=== PATIENT | male | born 1955 | race Caucasian/White ===

== ENCOUNTER → 2019-10-02 | Outpatient (CLI) | payer OTHER | END | disposition home or self-care (01) | LOC: LAB EV 14:25 → LAB SHORT 14:25 | DX: N39.0 Urinary tract infection, site not specified (principal) | CPT/HCPCS: 87086 ==

== ENCOUNTER 2021-01-19 12:33 | Day surgery (SDC) | payer OTHER ==
[~2021-01-19] VITALS: Ht 180.3 cm; Wt 106.3 kg
[~2021-01-19 12:33] MED LIST: ATOR40TA PO; GLUCOPHAGE1000 M3 PO; Prinivil10 MG PO
== END 2021-01-19 15:23 | disposition home or self-care (01) ==
LOC: ORSCSDS 12:33
PROVIDERS: Internal Medicine Gastroenterology
PROC: 0DBM8ZX Excision of Descending Colon, Via Natural or Artificial Opening Endoscopic, Diagnostic (ICD-10-PCS; principal; 2021-01-19 15:15)
PROC: 0D5H8ZZ Destruction of Cecum, Via Natural or Artificial Opening Endoscopic (ICD-10-PCS; principal; 2021-01-19 15:15)
PROC: 0DBP8ZX Excision of Rectum, Via Natural or Artificial Opening Endoscopic, Diagnostic (ICD-10-PCS; principal; 2021-01-19 15:15)
PROC: 0DBN8ZX Excision of Sigmoid Colon, Via Natural or Artificial Opening Endoscopic, Diagnostic (ICD-10-PCS; principal; 2021-01-19 15:15)
PROC: 0DBL8ZX Excision of Transverse Colon, Via Natural or Artificial Opening Endoscopic, Diagnostic (ICD-10-PCS; principal; 2021-01-19 15:15)
DX: Z12.11 Encounter for screening for malignant neoplasm of colon (principal); K55.20 Angiodysplasia of colon without hemorrhage; D12.0 Benign neoplasm of cecum; D12.3 Benign neoplasm of transverse colon; D12.4 Benign neoplasm of descending colon; K62.1 Rectal polyp; K64.8 Other hemorrhoids; Z86.010 Personal history of colon polyps; I10 Essential (primary) hypertension; F17.210 Nicotine dependence, cigarettes, uncomplicated; E11.9 Type 2 diabetes mellitus without complications; Z79.84 Long term (current) use of oral hypoglycemic drugs; Z79.899 Other long term (current) drug therapy
CPT/HCPCS: 82947; 88305; J2704; J7040; J7120

== ENCOUNTER → 2022-03-19 | Outpatient (CLI) | payer OTHER ==
[2022-03-19 14:43] LABS: BASOPHILS ABSOLUTE AUTO 0.03 K/mm3 (0.00-0.23); BASOPHILS PERCENT AUTO 0 % (0-2); EOSINOPHILS ABSOLUTE AUTO 0.05 K/mm3 (0.00-0.68); EOSINOPHILS PERCENT AUTO 1 % (0-6); Hematocrit 44.3 % (37.0-53.0); Hemoglobin 15.8 g/dL (13.5-17.5); IMMATURE GRAN ABSOLUTE AUTO 0.02 K/mm3 (0.00-0.10); IMMATURE GRAN PERCENT AUTO 0 % (0-1); LYMPHOCYTES ABSOLUTE AUTO 2.15 K/mm3 (0.84-5.20); LYMPHOCYTES PERCENT AUTO 25 % (21-46); MONOCYTES ABSOLUTE AUTO 0.43 K/mm3 (0.16-1.47); MONOCYTES PERCENT AUTO 5 % (4-13); Mean Corpuscular HGB 31.2 pg (26.0-34.0); Mean Corpuscular HGB Conc 35.7 g/dL (31.5-36.5); Mean Corpuscular Volume 88 fL (80-100); Mean Platelet Volume 10.7 fL (9.1-12.4); NEUTROPHILS ABSOLUTE AUTO 5.83 K/mm3 (1.96-9.15); NEUTROPHILS PERCENT AUTO 68 % (41-73); Platelet Count 250 K/mm3 (150-400); RDW Coefficient Variation 12.4 % (11.7-14.2); RDW Standard Deviation 39.6 fL (35.1-46.3); Red Blood Cell Count 5.06 M/mm3 (4.30-5.90); White Blood Cell Count 8.51 K/mm3 (4.00-11.30)
[2022-03-19 15:04] LABS: Albumin, Blood 3.8 g/dL (3.4-5.0); Albumin/Globulin Ratio 0.9 (0.8-1.8); Bilirubin, Total 0.3 mg/dL (0.1-1.0); Bun/Creatinine Ratio 16.5 (12.0-20.0); Calcium, Blood 9.5 mg/dL (8.5-10.1); Creatinine, Blood 1.27 mg/dL (0.60-1.20); Globulin, Blood 4.1 g/dL (2.2-4.0); Potassium, Blood 4.5 mmol/L (3.5-5.5); Thyroid Stimulating Hormone 1.711 uIU/mL (0.360-4.800); Total Protein, Blood 7.9 g/dL (6.4-8.2)
== END ==
LOC: LAB SHORT 14:35
PROVIDERS: Physician Assistant
DX: E86.0 Dehydration (principal); R53.83 Other fatigue
CPT/HCPCS: 80053; 83690; 84443; 85025

== ENCOUNTER 2022-03-31 00:59 | Day surgery (SDC) | payer MEDICARE, OTHER | END 2022-03-31 23:08 | disposition home or self-care (01) | LOC: WOUND 00:59 | DX: E11.621 Type 2 diabetes mellitus with foot ulcer (principal); L97.512 Non-pressure chronic ulcer of other part of right foot with fat layer exposed; D18.01 Hemangioma of skin and subcutaneous tissue; I10 Essential (primary) hypertension; D48.5 Neoplasm of uncertain behavior of skin; Z88.2 Allergy status to sulfonamides | CPT/HCPCS: 11106; 88305; A9270; G0463 ==

== ENCOUNTER 2022-04-07 02:21 | Day surgery (SDC) | payer MEDICARE, OTHER | END 2022-04-07 23:22 | disposition home or self-care (01) | LOC: WOUND 02:21 | DX: E11.621 Type 2 diabetes mellitus with foot ulcer (principal); L97.512 Non-pressure chronic ulcer of other part of right foot with fat layer exposed; I10 Essential (primary) hypertension; D48.5 Neoplasm of uncertain behavior of skin | CPT/HCPCS: A9270; G0463 ==

== ENCOUNTER 2022-04-14 01:50 | Day surgery (SDC) | payer MEDICARE, OTHER | END 2022-04-14 23:34 | disposition home or self-care (01) | LOC: WOUND 01:50 | DX: E11.621 Type 2 diabetes mellitus with foot ulcer (principal); L97.512 Non-pressure chronic ulcer of other part of right foot with fat layer exposed; I10 Essential (primary) hypertension; D48.5 Neoplasm of uncertain behavior of skin | CPT/HCPCS: G0463 ==

== ENCOUNTER 2023-05-16 17:22 | Emergency (ER) | payer OTHER, MEDICARE ==
[~2023-05-16] VITALS: Ht 182.9 cm; Wt 102.1 kg
[2023-05-16 17:46] LABS: BASOPHILS ABSOLUTE AUTO 0.07 K/mm3 (0.00-0.23); BASOPHILS PERCENT AUTO 1 % (0-2); EOSINOPHILS ABSOLUTE AUTO 0.59 K/mm3 (0.00-0.68); EOSINOPHILS PERCENT AUTO 4 % (0-6); Hematocrit 45.2 % (37.0-53.0); Hemoglobin 15.7 g/dL (13.5-17.5); IMMATURE GRAN ABSOLUTE AUTO 0.03 K/mm3 (0.00-0.10); IMMATURE GRAN PERCENT AUTO 0 % (0-1); LYMPHOCYTES ABSOLUTE AUTO 2.93 K/mm3 (0.84-5.20); LYMPHOCYTES PERCENT AUTO 21 % (21-46); MONOCYTES ABSOLUTE AUTO 0.72 K/mm3 (0.16-1.47); MONOCYTES PERCENT AUTO 5 % (4-13); Mean Corpuscular HGB Conc 34.7 g/dL (31.5-36.5); Mean Corpuscular Volume 89 fL (80-100); Mean Platelet Volume 10.3 fL (9.1-12.4); NEUTROPHILS ABSOLUTE AUTO 9.89 K/mm3 (1.96-9.15); NEUTROPHILS PERCENT AUTO 70 % (41-73); Platelet Count 249 K/mm3 (150-400); RDW Coefficient Variation 13.2 % (11.7-14.2); RDW Standard Deviation 42.9 fL (35.1-46.3); Red Blood Cell Count 5.06 M/mm3 (4.30-5.90); White Blood Cell Count 14.23 K/mm3 (4.00-11.30)
[2023-05-16 18:01] LABS: Albumin, Blood 3.9 g/dL (3.4-5.0); Albumin/Globulin Ratio 0.9 (0.8-1.8); Bilirubin, Total 0.4 mg/dL (0.1-1.0); Bun/Creatinine Ratio 14.7 (12.0-20.0); Calcium, Blood 9.5 mg/dL (8.5-10.1); Creatinine, Blood 1.16 mg/dL (0.60-1.20); Globulin, Blood 4.2 g/dL (2.2-4.0); Potassium, Blood 4.5 mmol/L (3.5-5.5); Total Protein, Blood 8.1 g/dL (6.4-8.2)
[2023-05-16] MEDS ORDERED: GLIP10ER PO (19:29)
[2023-05-16 21:18] LABS: Source, Urine Clean Catch
[2023-05-16 21:23] LABS: Appearance, Urine Clear (Clear); Bilirubin, Urine Neg (Neg); Blood, Urine Neg (Neg); Color, Urine Yellow (P-Yellow); Glucose Qualitative, Urine Neg (Neg); Ketones, Urine Neg (Neg); Leukocyte Esterase, Urine Neg (Neg); Nitrite, Urine Neg (Neg); Protein, Urine Neg (Neg); Specific Gravity, Urine 1.015 (1.003-1.022); Urobilinogen, Urine NORM (Normal)
[2023-05-16] MEDS ORDERED: TAMS.4ER PO (22:16)
[2023-05-16 22:30] VITALS: BP 105/74
== END 2023-05-16 22:43 | disposition home or self-care (01) ==
LOC: ER 17:22
PROVIDERS: Emergency Medicine; Physician Assistant
DX: N13.30 Unspecified hydronephrosis (principal); N32.3 Diverticulum of bladder; I10 Essential (primary) hypertension; E11.9 Type 2 diabetes mellitus without complications; Z79.899 Other long term (current) drug therapy; Z79.84 Long term (current) use of oral hypoglycemic drugs; Z87.891 Personal history of nicotine dependence; Z88.8 Allergy status to other drugs, medicaments and biological substances
CPT/HCPCS: 74177; 80053; 81003; 83690; 85025; 96374; 96375; 99284-25; A9270; J1885; J2405; Q9967

== ENCOUNTER 2023-10-16 05:49 | Inpatient (IN) | payer MEDICARE, OTHER ==
[~2023-10-16] VITALS: Ht 182.9 cm; Wt 99.2 kg
[~2023-10-16 05:49] MED LIST changes: +GLIP10 PO; +TAMS.4ER PO
[2023-10-16 06:23] LABS: Source, Urine Clean Catch
[2023-10-16] MEDS ORDERED: Ondansetron HCl 2 MG / ML 2ML Vial IV ONE (06:30)
[2023-10-16] MEDS ORDERED: NS 1,000 ML IV SCH (06:30)
[2023-10-16] MEDS ORDERED: FentaNYL Citrate 50 MCG/ML 2 ML Injection IV ONE (06:30)
[2023-10-16 06:36] LABS: BASOPHILS ABSOLUTE AUTO 0.05 K/mm3 (0.00-0.23); BASOPHILS PERCENT AUTO 0 % (0-2); EOSINOPHILS ABSOLUTE AUTO 0.03 K/mm3 (0.00-0.68); EOSINOPHILS PERCENT AUTO 0 % (0-6); Hematocrit 41.8 % (37.0-53.0); Hemoglobin 13.7 g/dL (13.5-17.5); IMMATURE GRAN ABSOLUTE AUTO 0.04 K/mm3 (0.00-0.10); IMMATURE GRAN PERCENT AUTO 0 % (0-1); LYMPHOCYTES ABSOLUTE AUTO 1.35 K/mm3 (0.84-5.20); LYMPHOCYTES PERCENT AUTO 9 % (21-46); MONOCYTES ABSOLUTE AUTO 0.63 K/mm3 (0.16-1.47); MONOCYTES PERCENT AUTO 4 % (4-13); Mean Corpuscular HGB 30.1 pg (26.0-34.0); Mean Corpuscular HGB Conc 32.8 g/dL (31.5-36.5); Mean Corpuscular Volume 92 fL (80-100); NEUTROPHILS ABSOLUTE AUTO 13.22 K/mm3 (1.96-9.15); NEUTROPHILS PERCENT AUTO 86 % (41-73); Platelet Count 356 K/mm3 (150-400); RDW Coefficient Variation 13.3 % (11.7-14.2); RDW Standard Deviation 45.1 fL (35.1-46.3); Red Blood Cell Count 4.55 M/mm3 (4.30-5.90); White Blood Cell Count 15.32 K/mm3 (4.00-11.30)
[2023-10-16 06:37] LABS: Appearance, Urine Cloudy (Clear); Bilirubin, Urine Neg (Neg); Blood, Urine 4+ (Neg); Color, Urine Yellow (P-Yellow); Glucose Qualitative, Urine Neg (Neg); Ketones, Urine Neg (Neg); Leukocyte Esterase, Urine 3+ (Neg); Nitrite, Urine Pos (Neg); Protein, Urine 3+ (Neg); Urobilinogen, Urine NORM (Normal)
[2023-10-16 06:53] LABS: Albumin, Blood 3.3 g/dL (3.4-5.0); Albumin/Globulin Ratio 0.6 (0.8-1.8); Bilirubin, Total 0.5 mg/dL (0.1-1.0); Calcium, Blood 9.8 mg/dL (8.5-10.1); Creatinine, Blood 1.86 mg/dL (0.60-1.20); Globulin, Blood 5.3 g/dL (2.2-4.0); Potassium, Blood 4.7 mmol/L (3.5-5.5); Total Protein, Blood 8.6 g/dL (6.4-8.2)
[2023-10-16 06:54] LABS: Bacteria Many /hpf; White Blood Cells, Urine TNTC /hpf (0-5)
[2023-10-16 07:00] LABS: Red Blood Cells, Urine 0-2 /hpf (0-2); Squamous Epithelial Cells Rare /hpf (Few)
[2023-10-16] MEDS ORDERED: CefTRIAXone Sodium 1,000 MG in NS 50 ML IV ONE (07:35)
[2023-10-16] MEDS ORDERED: FLU VACC QS2023-24(6MOS UP)/PF 60 MCG/0.5 ML SYRINGE IM SCH (10:20)
[2023-10-16] MEDS ORDERED: OxyCODONE HCL 5 MG TAB PO PRN (10:20)
[2023-10-16] MEDS ORDERED: Polyethylene Glycol 3350 17 gm PO PRN (10:20)
[2023-10-16] MEDS ORDERED: Acetaminophen 500 MG Tab PO PRN (10:20)
[2023-10-16] MEDS ORDERED: Insulin Human Lispro 100 Units/ML 3ML Syringe SC SCH (11:30)
--- NOTE | 2023-10-16 12:46 | NUR ---
ADMIT PT ADMITED AND ORIENTED FLOOR AT 1246. PT PROVIDED WITH ICE WATER. CALL LIGHT IN REACH. HAM DRAINING RED URINE. PT C/O PAIN IN HIS PELVIC AREA. BLADDER SCAN COMPLETED. 0CC IN BLADDER. DR. HERNANDEZ NOTIFIED OF PAIN AND CHANGE IN URINE COLOR. PT DENIES OTHER NEEDS AT THIS TIME.
[2023-10-16 12:53] VITALS: BP 121/89
[2023-10-16] MEDS ORDERED: GLUCOPHAGE1000 M1 PO (15:21)
[2023-10-16 15:47] VITALS: BP 134/89
--- NOTE | 2023-10-16 18:16 | NUR ---
SHIFT SUMMARY PT ADMITTED TO FLOOR TODAY FROM THE ER. URINE CONTINUES TO BE RED IN COLOR. VERY FEW CLOTS NOTED IN URINE WHEN EMPTYING CATHETER. PT MEDICATED WITH TYLENOL AND OXYCODONE SINCE ADMITTED TODAY. SEE EMAR. DIET CHANGED TO CONSISTANT CARB DIET. NO OTHER ACUTE CHANGES IN ASSESSMENT AT THIS TIME. VS REVIEWED. CALL LIGHT IN REACH. DENIES OTHER NEEDS AT THIS TIME. RESTING IN BED, EATING DINNER.
[2023-10-16 20:21] VITALS: BP 136/78
[2023-10-16] MEDS ORDERED: Lactobacil 2-S.Thermo-Bifido 1 1 Cap PO SCH (21:00)
--- NOTE | 2023-10-17 00:35 | NUR ---
0018-CALL RECEIVED FROM HEMATOLOGY-BLOOD CULTURE CAME BACK POSITIVE WITH GRAM POSITIVE BACILLI. 0034-HOSPITALIST DR. FLORES AND NOTIFIED OF POSITIVE BLOOD CULTURE. NO CHANGE OR ORDERS AT THIS TIME.
[2023-10-17 02:45] VITALS: BP 113/76
[2023-10-17 04:50] LABS: Hemoglobin 12.4 g/dL (13.5-17.5); Mean Corpuscular HGB 30.4 pg (26.0-34.0); Mean Corpuscular HGB Conc 33.5 g/dL (31.5-36.5); Mean Corpuscular Volume 91 fL (80-100); Mean Platelet Volume 10.4 fL (9.1-12.4); Platelet Count 284 K/mm3 (150-400); RDW Coefficient Variation 13.3 % (11.7-14.2); Red Blood Cell Count 4.08 M/mm3 (4.30-5.90); White Blood Cell Count 12.45 K/mm3 (4.00-11.30)
--- NOTE | 2023-10-17 05:23 | NUR ---
SHIFT SUMMARY. PATIENT IS ALERT AND ORIENTED. FAMILY IN AT BEDSIDE BEGINNING OF SHIFT. PATIENT HAS HAM CATHETER THAT IS PATENT AND DRAINING RED URINE TO GRAVITY. NO CLOTS NOTED. PATIENT IS INDEPENDENT IN. NO ACUTE EVENTS NOTED OVER NIGHT. PATIENT CALLS APPROPRIATELY AND IS ABLE TO MAKE HIS NEEDS KNOWN. PATIENT C/O PAIN MEDICATED PER EMAR X2. BED IS LOCKED IN THE LOWEST POSITION WITH CALL LIGHT IN REACH. NO S/S OF DISTRESS NOTED AT THIS TIME. CARE IS ONGOING.
[2023-10-17 05:37] LABS: Albumin, Blood 2.8 g/dL (3.4-5.0); Anion Gap 4 mmol/L (6-16); Blood Urea Nitrogen 22 mg/dL (8-24); Bun/Creatinine Ratio 13.3 (12.0-20.0); CO2, Blood 24 mmol/L (21-32); Calcium, Blood 9.7 mg/dL (8.5-10.1); Chloride, Blood 114 mmol/L (98-108); Creatinine, Blood 1.65 mg/dL (0.60-1.20); Glomerular Filtration Rate 45 (60-); Glucose, Blood 174 mg/dL (70-99); Potassium, Blood 4.5 mmol/L (3.5-5.5); Sodium, Blood 142 mmol/L (136-145)
[2023-10-17 07:45] VITALS: BP 108/80
[2023-10-17] MEDS ORDERED: CefTRIAXone Sodium 1,000 MG in NS 50 ML IV SCH (09:00)
[2023-10-17 15:40] VITALS: BP 120/82
--- NOTE | 2023-10-17 17:45 | NUR ---
DAYSHIFT SUMMARY Patient alert & oriented x4, reports feeling improved but not 100%. Plan to stay over night, possible discharge tomorrow with homehealth. Patient & family updated on plan of care. Patient sitting up on edge of bed for all meals. Vitals stable.
--- NOTE | 2023-10-17 17:51 | NUR ---
DAYSHIFT SUMMARY Patient alert & oriented x4. Reported pain this evening, Oxycodone give for pain. IV ABX administred this shift. Kim cath in place, urine yellow-pink. Vitals stable, afebrile. Will continue plan of care.
[2023-10-17 20:22] VITALS: BP 116/77
[2023-10-18 03:03] VITALS: BP 127/76
--- NOTE | 2023-10-18 03:23 | NUR ---
SHIFT SUMMERY, PT RESTING IN BED, PT JUST MEDICATED FOR PAIN. CALL LIGHT IN REACH HAM CATH DRAINING URINE.
[2023-10-18 07:06] VITALS: BP 124/92
--- NOTE | 2023-10-18 09:00 | NUR ---
pt laying in bed watching tv, a/ox4, pleasant and cooperative with care, follows commands well, denies pain, states he's doing well, reports this is his second uti, lungs are clear t/o, resp even and unlabored, no cough noted, hrr, no edema noted, ppp+2, cap refill <3 sec, vs stable, afebrile, piv to rac is clear and patent, btx4, abd flat soft nontender, voids via garcia cath, urine is yellow with white sediment, skin c/w/d, maew, hector, call light in reach.
[2023-10-18 16:51] VITALS: BP 130/88
--- NOTE | 2023-10-18 18:26 | NUR ---
Pt has family in room, denies any complaints or needs, states he's doing well, no acute changes this shift. call light in reach.
[2023-10-18 19:36] VITALS: BP 128/77
--- NOTE | 2023-10-19 04:21 | NUR ---
SHIFT SUMMERY, PT RESTING IN BED, PT WATCHING TV AND SEEMING TO SLEEP OFF AND ON. PT REQUESTED PAIN MED X 1. CALL LIGHT IN REACH.
[2023-10-19 04:55] VITALS: BP 151/92
[2023-10-19 05:22] LABS: BASOPHILS ABSOLUTE AUTO 0.07 K/mm3 (0.00-0.23); BASOPHILS PERCENT AUTO 1 % (0-2); EOSINOPHILS ABSOLUTE AUTO 0.24 K/mm3 (0.00-0.68); EOSINOPHILS PERCENT AUTO 2 % (0-6); Hematocrit 37.7 % (37.0-53.0); Hemoglobin 12.9 g/dL (13.5-17.5); IMMATURE GRAN ABSOLUTE AUTO 0.04 K/mm3 (0.00-0.10); IMMATURE GRAN PERCENT AUTO 0 % (0-1); LYMPHOCYTES PERCENT AUTO 18 % (21-46); MONOCYTES ABSOLUTE AUTO 0.78 K/mm3 (0.16-1.47); MONOCYTES PERCENT AUTO 7 % (4-13); Mean Corpuscular HGB 30.6 pg (26.0-34.0); Mean Corpuscular HGB Conc 34.2 g/dL (31.5-36.5); Mean Corpuscular Volume 89 fL (80-100); NEUTROPHILS PERCENT AUTO 72 % (41-73); Platelet Count 294 K/mm3 (150-400); RDW Coefficient Variation 12.9 % (11.7-14.2); RDW Standard Deviation 42.4 fL (35.1-46.3); Red Blood Cell Count 4.22 M/mm3 (4.30-5.90); White Blood Cell Count 10.73 K/mm3 (4.00-11.30)
[2023-10-19 05:50] LABS: Bun/Creatinine Ratio 17.5 (12.0-20.0); Calcium, Blood 9.2 mg/dL (8.5-10.1); Creatinine, Blood 1.37 mg/dL (0.60-1.20); Potassium, Blood 4.2 mmol/L (3.5-5.5)
[2023-10-19 07:33] VITALS: BP 135/96
[2023-10-19] MEDS ORDERED: CefTRIAXone Sodium 2,000 MG in NS 100 ML IV SCH (09:00)
[2023-10-19] MEDS ORDERED: VISBIOME 112.51 EACH PO (10:40)
[2023-10-19] MEDS ORDERED: LEVO750 PO (10:41)
--- NOTE | 2023-10-19 11:30 | NUR ---
DISCHARGE NOTE PT DISCHARGED HOME AT APPROX 11:15. PT PROVIDED W/ VERBAL AND WRITTEN INSTRUCTIONS AND REPORTED UNDERSTANDING. PT A&OX4, VSS, AMB IND, TOLERATING PO, VOIDING, HAM REMAINED IN PLACE PER D/C ORDERS, AND DENIED PAIN. PT TO FOLLOW UP W/ UROLOGY ON SUN. BELONGINGS WERE RETURNED AND PT ESCOURTED OUT BY LISSA PETERSEN.
== END 2023-10-19 11:28 | disposition home or self-care (01) | DRG 872 ==
LOC: ER 05:49 → ERHOLD 10:16 → MEDS 12:47 → ENPENDDIS 10-19 09:56 → MEDS 10-19 11:28
PROVIDERS: Emergency Medicine; Family Medicine; ADMIT Internal Medicine
PROC: 3E03329 Introduction of Other Anti-infective into Peripheral Vein, Percutaneous Approach (ICD-10-PCS; principal; 2023-10-16)
PROC: 0T9B70Z Drainage of Bladder with Drainage Device, Via Natural or Artificial Opening (ICD-10-PCS; 2023-10-16)
DX: A41.51 Sepsis due to Escherichia coli [E. coli] (principal); N17.9 Acute kidney failure, unspecified; E87.1 Hypo-osmolality and hyponatremia; N13.6 Pyonephrosis; N18.30 Chronic kidney disease, stage 3 unspecified; E11.22 Type 2 diabetes mellitus with diabetic chronic kidney disease; I12.9 Hypertensive chronic kidney disease with stage 1 through stage 4 chronic kidney disease, or unspecified chronic kidney disease; Z86.010 Personal history of colon polyps; D63.1 Anemia in chronic kidney disease; R33.9 Retention of urine, unspecified; N32.0 Bladder-neck obstruction; N32.3 Diverticulum of bladder; Z88.8 Allergy status to other drugs, medicaments and biological substances; Z79.84 Long term (current) use of oral hypoglycemic drugs; Z79.811 Long term (current) use of aromatase inhibitors; Z79.899 Other long term (current) drug therapy; Z98.890 Other specified postprocedural states; Z87.891 Personal history of nicotine dependence
CPT/HCPCS: 36415; 51702; 74177; 80048; 80053; 80069; 81001; 82947; 83605; 83735; 85025; 85027; 87040; 87077; 87086; 87186; 93306; 96365-59; 96375-59; 99285-25; A9270; J0696; J2405; J3010; J7030; Q9967